=== PATIENT | male | born 1995 | race Caucasian/White ===

== ENCOUNTER → 2020-12-21 14:44 | Outpatient (CLI) | payer OTHER, SELFPAY ==
[2020-12-21 17:29] LABS: Absolute Neutrophil Count 5.9 X10^3/uL (2.0-7.7); Basophil# 0.03 X10^3/uL; Basophil% 0.3 % (0-1); Eosinophil# 0.12 X10^3/uL; Eosinophils% 1.4 % (0-5); Hematocrit 41.5 % (40-54); Hemoglobin 14.2 g/dL (13.0-16.5); Lymphocyte % 23.2 % (19-41); Mean Corp Hgb Conc 34.2 g/dL (32-36); Mean Corpuscular Hgb 31.5 pg (27.0-32.0); Mean Platelet Vol. 12.1 fl (6.2-12.0); NRBC Flagged by Analyzer 0 % (0-5); Neutrophil # 5.86 X10^3/uL (2.7-7.7); Neutrophil % 67.9 % (47-70); Platelet Count 224 K/mm3 (150-450); RBC Distribution Width CV 12.3 % (11.6-14.6); RBC Distribution Width SD 41.8 fl (35.1-43.9); Red Blood Count 4.51 M/mm3 (4.6-6.2); White Blood Count 8.6 K/mm3 (4.4-11.0)
[2020-12-21 18:01] LABS: Anion Gap 9 (5-15); BUN 12 mg/dL (7-18); BUN/Creat Ratio 15.3 RATIO (10-20); Calcium,Total 9.7 mg/dL (8.5-10.1); Chloride 104 mmol/L (98-107); Creatinine, Serum 0.78 mg/dL (0.70-1.30); EST Glomerular Filtration Rate 128 mL/min (>60); Est Glom Filt Rate - Afr Amer 155 mL/min (>60); Glucose 94 mg/dL (74-106); Potassium 3.6 mmol/L (3.5-5.1); Sodium Level 140 mmol/L (136-145); Thyroid Stim Hormone (TSH) 0.43 uIU/mL (0.358-3.74)
== END ==
PROVIDERS: PCP Family Medicine; Referring Provider Family Medicine; Visit Provider Family Medicine
DX: R63.1 Polydipsia (principal)
CPT/HCPCS: 36415; 80048; 83036; 84443; 85025

== ENCOUNTER 2022-12-06 18:36 | Emergency (ER) | payer OTHER, SELFPAY ==
[2022-12-06 18:38] VITALS: BP 140/87; PULSE 87; RESP 16; TEMP 36.8; O2SAT 99; BMI 22.6
[2022-12-06] MEDS: Tetracaine 0.5% Ophthalmic Bottle 1 DRP RIGHT EYE (18:59)
[2022-12-06] MEDS: Fluorescein 1 MG STRIP 1 STRIP LEFT EYE (19:00)
--- NOTE | 2022-12-06 19:10 | EDS_ITS ---
HPI History of Present Illness Chief Complaint: Eye Problem Narrative Narrative: Patient is a 27-year-old male with no significant ankle history presents to the emergency department with right eye pain. Patient states on Thursday which was 4 days ago, the patient was working with some metal at work, when he thought something hit him in the eye. He then washed it out, thought he got the foreign body out. However for the last 48 hours he has been having more pain and redness. Patient states that this did happen at work. Patient states of the last 48 hours has had more pressure, is here for evaluation PFSH PFS Medical History no medical history Home Medications erythromycin 5 mg/gram (0.5 %) eye ointment 1 applic RIGHT EYE Q6H #3.5 grams 12/06/22 [Rx Last Taken Unknown] Allergy/AdvReac Type Severity Reaction Status Date / Time amoxicillin Allergy Intermediate NEEDS Verified 12/06/22 18:37 FOLLOW-UP Social History Smoking Status: Never smoker ROS ROS ED ROS Narrative Constitutional: Negative for fever, chills, weight loss, weakness Eyes: Negative for vision loss, vision change, double vision. Positive for foreign body sensation of the right eye ENT: Negative for any sore throat, ear pain, congestion Cardiovascular: Negative for any chest pain, tightness, palpitations Respiratory: Negative for any cough, sputum production, hemoptysis, dyspnea, dyspnea on exertion, orthopnea Gastrointestinal: Negative for any abdominal pain, nausea, vomiting, diarrhea, constipation, blood in stool, blood in vomit : Negative for any urinary frequency, dysuria, retention, blood in urine Muscle skeletal: Negative for any muscle joint pain, stiffness, myalgias, arthralgias, neck pain, back pain Neurological: Negative for any headache, syncope, numbness or tingling, dizziness Skin: Negative for any rashes, lumps, itching, abrasions, lacerations Psychiatric: Negative for any depression, anxiety, stress, suicidal ideation, homicidal ideation Hematologic: Negative for any easy bruising, excessive bruising, easy bleeding Allergies: Negative for any eczema, hives, rash EXAM Physical Exam Narrative Exam Narrative: Vital signs reviewed. HEET: Head normocephalic atraumatic, TMs clear bilaterally. Posterior pharynx is clear, moist mucous membranes. Nares clear bilaterally. Once tetracaine drops were placed, patient's left eye was clear, patient's right eye shows a foreign body, small piece of metal on the 3:00 area of the corner of the iris in the sclera. Neck: Supple with no lymphadenopathy or tenderness. No signs of meningismus, negative jolt sign. Cardiac: Regular rate and rhythm no murmurs gallops or rubs, equal peripheral pulses bilaterally. Respiratory: Lungs clear to auscultation bilaterally. No chest tenderness. Abdomen: Soft, nontender, nondistended. No abdominal bruit or pulsatile masses. No hepatosplenomegaly Extremities: No peripheral edema, no signs of gross trauma or deformity. Active full range of motion of all extremities. Neuro: Cranial nerves II through XII intact, no focal neurological deficits. Skin: Clean dry and intact with no rash, purpura, petechiae, vesicles or pustules. Backs/flank: No CVA tenderness, no midline spinal tenderness, no deformity. Psych: Normal mood and affect. No SI, HI or acute psychosis. Const Vital Signs: 12/06/22 18:38 Temperature 98.3 F Temperature Source Temporal Pulse Rate 87 Respiratory Rate 16 Blood Pressure 140/87 H Blood Pressure Mean 104 Pulse Ox 99 Oxygen Delivery Method Room Air [facility] Treatment and Re-Evaluation Narrative: Patient appears generally well, patient appears nontoxic, vital signs are stable. Patient presents the emergency department for foreign body sensation in the right eye. Patient does have a foreign body, small piece of metal between the iris and the sclera at the 3:00 area of the right eye. I did use tetracaine to anesthetize the eye. I used a wet Q-tip, 18-gauge, did not get the piece of metal out. At this time, I do believe the patient needs to follow-up with ophthalmology. I did speak with ophthalmology on-call, he will see Dr. Rowland Thursday morning, if the patient is in too much pain he will follow-up tomorrow. He was given all the numbers. He will follow-up outpatient. Patient will be started erythromycin ointment. All questions answered, all proper paperwork was filled out. Patient is able to return to work but needs to wear continuous eye protection. Patient stable for discharge. Discharge Plan Triage Chief Complaint: Eye Problem ED Midlevel Provider: Heriberto Garibay ED Provider: Jim Willis Dx/Rx/DC Orders Clinical Impression: Foreign body in external eye, Abrasion, corneal Instructions: Corneal Injury Prescriptions: New erythromycin 5 mg/gram (0.5 %) ointment 1 applic RIGHT EYE Q6H Qty: 3.5 0RF Rx Instructions: Please use for 5 days Primary Care Provider: Heriberto Carias Referrals: Heriberto Carias MD [Primary Care Provider] - Hair Rowland MD [Med Staff - Active Staff] - As soon as possible Activity Restrictions/Additional Instructions: Please use the erythromycin ointment 4 times a day for 5 days. Please follow-up with ophthalmology. Disposition Disposition: Home, Self Care
== END 2022-12-06 19:56 | disposition home or self-care (01) ==
PROVIDERS: Emergency Provider Emergency Medicine; PCP Family Medicine; Visit Provider Emergency Medicine
DX: T15.01XA Foreign body in cornea, right eye, initial encounter (principal)
CPT/HCPCS: 99283